=== PATIENT | male | born 1960 | race Caucasian/White ===

== ENCOUNTER 2021-05-29 14:46 | Emergency (ER) | payer OTHER ==
[2021-05-29 16:09] LABS: BASOPHIL 0.8 % (0-2); HCT 46.9 % (42.0-52.0); HGB 15.3 g/dl (13.2-18.0); LYMPHOCYTE 13.3 % (15-48); MCH 28.2 pg (25.0-31.0); MCHC 32.6 g/dL (32.0-36.0); MCV 86.4 fL (78.0-100.0); MONOCYTE 11.4 % (0-12); NEUTROPHIL 72.9 % (41-80); NRBC 0; PLT 263 K/uL (150-400); RBC 5.43 M/uL (4.70-6.00); RDW 13.7 % (11.5-14.0); WBC 5.2 K/uL (4.0-10.5)
[2021-05-29 16:31] LABS: BUN/CREAT RATIO (CALC) 13.3 RATIO; CREATININE 1.5 mg/dL (0.67-1.17); POTASSIUM 3.3 mmol/L (3.5-5.1)
[2021-05-29 16:37] LABS: BILIRUBIN NEGATIVE (NEGATIVE); BLOOD NEGATIVE Ery/uL (NEGATIVE); CLARITY CLEAR (CLEAR); COLOR YELLOW (YELLOW); GLUCOSE (U) NORMAL (NORMAL); LEUKOCYTES NEGATIVE Leu/uL (NEGATIVE); NITRITE NEGATIVE (NEGATIVE); PROTEIN NEGATIVE (NEGATIVE); SPECIFIC GRAVITY >=1.030 (1.001-1.030)
[2021-05-29 16:49] LABS: INFLUENZA A NAA NEGATIVE (NEGATIVE)
[2021-05-29 16:57] LABS: CORONAVIRUS 2019 SARS-COV-2 POSITIVE (NEGATIVE)
== END 2021-05-29 19:58 | disposition home or self-care (01) ==
LOC: FER 14:46
PROVIDERS: Nurse Practitioner Family
DX: U07.1 COVID-19 (principal); I10 Essential (primary) hypertension; K21.9 Gastro-esophageal reflux disease without esophagitis; Z79.899 Other long term (current) drug therapy
CPT/HCPCS: 36415; 71045; 80048; 81003; 84484; 85025; 93005; J1100; J7030; M0243; Q0244; U0002